=== PATIENT | female | born 1990 | race Caucasian/White ===

== ENCOUNTER 2021-10-23 09:37 | Inpatient (IN) | payer BC, OTHER ==
[~2021-10-23 09:37] MED LIST: Bupivacaine/Epinephrine 0.25% 30 ML VIAL ONE
[2021-10-23] MEDS ORDERED: Diphenoxylate HCl/Atropine Tablet PO PRN ×2 (09:39)
[2021-10-23] MEDS ORDERED: HYDROcodone/Acetaminophen 5/325 mg Tablet PO PRN ×2 (09:39)
[2021-10-23] MEDS ORDERED: Promethazine HCl 25 MG/ML VIAL IM PRN ×2 (09:39→14:46)
[2021-10-23] MEDS ORDERED: Lidocaine 1% (PF) 30 ML VIAL SC PRN (09:39)
[2021-10-23] MEDS ORDERED: Acetaminophen 500 MG TAB PO PRN (09:39)
[2021-10-23] MEDS ORDERED: Ibuprofen 800 MG TAB PO PRN (09:39)
[2021-10-23] MEDS ORDERED: hydrALAZINE 20 MG/ML VIAL SLOW IVP PRN ×2 (09:39→15:33)
[2021-10-23] MEDS ORDERED: Misoprostol 200 MCG TAB PR PRN (09:39)
[2021-10-23] MEDS ORDERED: Ondansetron PF 4 MG/2 ML Vial IVP PRN ×3 (09:39→15:33)
[2021-10-23] MEDS ORDERED: Butorphanol Tartrate 1 MG/ML VIAL SLOW IVP PRN (09:39)
[2021-10-23] MEDS ORDERED: Docusate 100 MG CAP PO PRN (09:39)
[2021-10-23] MEDS ORDERED: NS w/ Oxytocin 30 units 500 ML IV SCH ×3 (09:45→15:45)
[2021-10-23] MEDS ORDERED: Penicillin G Potassium 5 MILL.UNITS in Sodium Chloride 0.9% 100 ML IVPB SCH (09:45)
[2021-10-23] MEDS ORDERED: Penicillin G 2.5 MILL.units 2.5 MILL.UNITS in Premix Bag 1 BAG IVPB SCH ×2 (09:45→14:00)
[2021-10-23] MEDS: Lactated Ringer's 1,000 ML IV SCH ×2 (10:00→14:45)
[2021-10-23 10:14] VITALS: BMI 24.2
[2021-10-23 10:40] LABS: Hemoglobin 9.9 g/dL (12.0-15.5); Mean Corpuscular HGB CONC 32.4 g/dL (32.0-36.0); Mean Corpuscular Hemoglobin 29.3 pg (27.0-33.0); Mean Corpuscular Volume 90.5 fl (81.6-98.3); Mean Platelet Volume 12.5 fl (7.4-10.4); Platelet Count 225 10x3/uL (150-450); RBC Distribution Width 13.2 % (11.5-14.5); Red Blood Cell (RBC) Count 3.38 10x6/uL (3.90-5.03); White Blood Cell (WBC) Count 5.5 10x3/uL (3.5-10.5)
[2021-10-23] MEDS ORDERED: Misoprostol 200 MCG TAB ONE (11:08)
[2021-10-23 11:16] LABS: Syphilis Antibody Nonreactive (Nonreactive); Syphilis Antibody Index 0.08 S/CO (<1.00 Non-Reactive)
[2021-10-23 11:21] LABS: HIV (1/2) Antibody/Antigen Non-Reactive (NonReactive); HIV 1/2 INDEX 0.09 S/CO (<1.00); Hep B Surf Ag Non-Reactive S/CO (NonReactive)
[2021-10-23 11:24] LABS: HBSAg Index 0.15 S/CO (0-0.99)
[2021-10-23] MEDS ORDERED: Fentanyl 2 mcg/Bup 0.1% Cadd 100 ML ONE (14:01)
[2021-10-23] MEDS ORDERED: Meperidine HCl/PF 25 MG/ML VIAL SLOW IVP PRN (14:46)
[2021-10-23] MEDS ORDERED: Ondansetron HCl/PF 4 MG/2 ML Vial IVP PRN (14:46)
[2021-10-23] MEDS ORDERED: Fentanyl 100 MCG/2 ML VIAL SLOW IVP PRN (14:46)
[2021-10-23] MEDS ORDERED: Ketorolac Tromethamine 30 MG/ML VIAL IVP PRN (14:46)
[2021-10-23] MEDS ORDERED: Naloxone HCl 0.4 mg/ml Vial IV PRN (14:46)
[2021-10-23] MEDS ORDERED: diphenhydrAMINE 50 MG/ML VIAL IVP PRN (14:46)
[2021-10-23] MEDS ORDERED: Hydrocerin (Eucerin) Cream 120 gm Jar TOP PRN (14:46)
[2021-10-23] MEDS ORDERED: Promethazine HCl 25 MG SUPP PR PRN (14:46)
[2021-10-23] MEDS ORDERED: Naloxone HCl 0.4 mg/ml Vial IVP PRN ×2 (14:46)
[2021-10-23] MEDS ORDERED: Fentanyl 100 MCG/2 ML VIAL ONE (14:54)
[2021-10-23] MEDS ORDERED: Communication Order-Pharmacy FS SCH (15:00)
[2021-10-23] MEDS ORDERED: Ketorolac Tromethamine 30 MG/ML VIAL IVP SCH (15:00)
[2021-10-23] MEDS ORDERED: Milk Of Magnesia 30 ML UDCUP PO PRN (15:33)
[2021-10-23] MEDS ORDERED: Preparation H Ointment 28 GM TUBE PR PRN (15:33)
[2021-10-23] MEDS ORDERED: Misoprostol 200 MCG TAB VAG PRN (15:33)
[2021-10-23] MEDS ORDERED: Bisacodyl 10 MG SUPP PR PRN (15:33)
[2021-10-23] MEDS ORDERED: Boostrix 0.5 ML (Tdap) VIAL IM ONE (15:33)
[2021-10-23] MEDS ORDERED: Benzocaine-Menthol 82.5 ML CAN TOP PRN (15:33)
[2021-10-23] MEDS ORDERED: Lanolin Ointment 7 GM TUBE TOP PRN (15:33)
[2021-10-23] MEDS ORDERED: diphenhydrAMINE 25 MG CAP PO PRN (15:33)
[2021-10-23] MEDS ORDERED: Witch Hazel-Glycerin 1 EACH JAR TOP PRN (15:34)
[2021-10-23] MEDS ORDERED: Ibuprofen 800 MG TAB PO SCH (16:45)
[2021-10-23] MEDS: Ferrous Sulfate 325 MG TAB PO SCH (19:20)
[2021-10-23] MEDS ORDERED: Acetaminophen/Codeine 30-300mg Tablet PO PRN (21:26)
[2021-10-23] MEDS: Acetaminophen/Codeine 30-300mg Tablet PO PRN (21:57)
[2021-10-23] MEDS: Docusate 100 MG CAP PO SCH (23:35)
[2021-10-23] MEDS: Ibuprofen 800 MG TAB PO SCH (23:35)
[2021-10-24] MEDS ORDERED: Zolpidem Tartrate 5 MG TAB PO PRN (03:30)
[2021-10-24] MEDS ORDERED: HYDROcodone/Acetaminophen 5/325 mg Tablet PO PRN ×2 (03:30)
[2021-10-24] MEDS: Ibuprofen 800 MG TAB PO SCH ×3 (05:13→22:24)
[2021-10-24] MEDS: Acetaminophen/Codeine 30-300mg Tablet PO PRN ×3 (05:14→18:03)
[2021-10-24] MEDS: Docusate 100 MG CAP PO SCH ×2 (08:58→22:24)
[2021-10-24] MEDS: Prenatal Vitamin 1 TAB PO SCH (08:58)
[2021-10-24] MEDS: Ferrous Sulfate 325 MG TAB PO SCH ×2 (08:58→18:03)
[2021-10-25] MEDS: Ibuprofen 800 MG TAB PO SCH ×2 (06:14→14:13)
[2021-10-25 07:56] VITALS: BP 114/71; TEMP 98.2
[2021-10-25] MEDS: Docusate 100 MG CAP PO SCH (08:31)
[2021-10-25] MEDS: Ferrous Sulfate 325 MG TAB PO SCH ×2 (08:31→17:14)
[2021-10-25] MEDS: Prenatal Vitamin 1 TAB PO SCH (08:31)
== END 2021-10-25 18:00 | disposition home or self-care (01) | DRG 805 ==
LOC: CSHLD 09:37 → CSHPP 17:35
PROVIDERS: ADMIT Obstetrics & Gynecology; ATTEND Obstetrics & Gynecology
PROC: 10D07Z6 Extraction of Products of Conception, Vacuum, Via Natural or Artificial Opening (ICD-10-PCS; principal; 2021-10-23)
PROC: 10907ZC Drainage of Amniotic Fluid, Therapeutic from Products of Conception, Via Natural or Artificial Opening (ICD-10-PCS; 2021-10-23)
DX: O99.02 Anemia complicating childbirth (principal); O75.3 Other infection during labor; Z37.0 Single live birth; O99.354 Diseases of the nervous system complicating childbirth; O99.344 Other mental disorders complicating childbirth; O99.824 Streptococcus B carrier state complicating childbirth; F41.9 Anxiety disorder, unspecified; Z3A.39 39 weeks gestation of pregnancy; Z86.16 Personal history of COVID-19; D64.9 Anemia, unspecified; G43.909 Migraine, unspecified, not intractable, without status migrainosus; F32.A Depression, unspecified; Z79.82 Long term (current) use of aspirin; Z79.899 Other long term (current) drug therapy; N76.0 Acute vaginitis; O32.8XX0 Maternal care for other malpresentation of fetus, not applicable or unspecified; O76 Abnormality in fetal heart rate and rhythm complicating labor and delivery
CPT/HCPCS: 85027; 86780; 86850; 86900; 86901; 87340; 87389; J2540; J2590; J3490; J7120